=== PATIENT | female | born 1970 | race Caucasian/White ===

== ENCOUNTER 2019-06-19 23:25 | Emergency (ER) | payer SELFPAY ==
[~2019-06-19] VITALS: Ht 172.7 cm; Wt 68.2 kg
[2019-06-19 23:32] VITALS: TEMP 97.5
[2019-06-19] MEDS ORDERED: SYNTHROID0.125 MG/T PO (23:35)
[2019-06-19] MEDS ORDERED: DESYREL 50MG50 MG PO (23:35)
[2019-06-19] MEDS ORDERED: ZANAFLEX2 MG PO (23:35)
[2019-06-19] MEDS ORDERED: WELLBUTRIN SR100 M1 PO (23:36)
[2019-06-19] MEDS ORDERED: CYMBALTA 20MG20 MG PO (23:36)
[2019-06-20] MEDS ORDERED: DOXYCYCLINE 10100 MG PO (00:25)
[2019-06-20] MEDS ORDERED: OMNICEF 300MG300 MG PO (00:25)
[2019-06-20 01:08] VITALS: BP 121/89; PULSE 95
[2019-06-21] MEDS ORDERED: DOXYCYCLINE HY100 MG PO (19:43)
[2019-06-21] MEDS ORDERED: OMNICEF 300MG300 MG PO (19:43)
== END 2019-06-20 01:09 | disposition home or self-care (01) ==
LOC: COL.ER 23:25
DX: L98.9 Disorder of the skin and subcutaneous tissue, unspecified (principal); Z90.710 Acquired absence of both cervix and uterus

== ENCOUNTER → 2019-06-20 | Emergency (ER) | payer SELFPAY ==
[~2019-06-20] MED LIST: CYMBALTA 20MG20 MG PO; DESYREL 50MG50 MG PO; DOXYCYCLINE 10100 MG PO; DOXYCYCLINE HY100 MG PO; OMNICEF 300MG300 MG PO; SYNTHROID0.125 MG/T PO; WELLBUTRIN SR100 M1 PO; ZANAFLEX2 MG PO
== END ==
LOC: COL.ER 15:19
DX: Z72.9 Problem related to lifestyle, unspecified (principal)

== ENCOUNTER 2019-06-21 17:35 | Emergency (ER) | payer SELFPAY ==
[~2019-06-21] VITALS: Ht 172.7 cm; Wt 68.2 kg
[~2019-06-21 17:35] MED LIST changes: -DOXYCYCLINE HY100 MG PO
[2019-06-21 18:15] VITALS: BP 135/81; TEMP 98.6
[2019-06-21] MEDS ORDERED: DOXYCYCLINE HY100 MG PO (19:43)
[2019-06-21] MEDS ORDERED: OMNICEF 300MG300 MG PO (19:43)
[2019-06-21 19:53] VITALS: PULSE 98
== END 2019-06-21 19:56 | disposition home or self-care (01) ==
LOC: COL.ER 17:35
DX: L02.416 Cutaneous abscess of left lower limb (principal)